=== PATIENT | male | born 1960 | race Caucasian/White ===

== ENCOUNTER 2023-07-01 07:47 | Outpatient (CLI) | payer OTHER | END 2023-07-01 07:48 | disposition home or self-care (01) | LOC: CSHMRI 07:47 | PROVIDERS: ATTEND Neurological Surgery | DX: M47.12 Other spondylosis with myelopathy, cervical region (principal); M48.062 Spinal stenosis, lumbar region with neurogenic claudication; M48.02 Spinal stenosis, cervical region; M47.816 Spondylosis without myelopathy or radiculopathy, lumbar region; Q76.49 Other congenital malformations of spine, not associated with scoliosis | CPT/HCPCS: 72050; 72110; 72141; 72148 ==

== ENCOUNTER 2024-08-15 08:47 | Outpatient (CLI) | payer OTHER | END 2024-08-15 08:48 | disposition home or self-care (01) | LOC: CSHULT 08:47 | PROVIDERS: ATTEND Nurse Practitioner Family | DX: R74.8 Abnormal levels of other serum enzymes (principal); K76.0 Fatty (change of) liver, not elsewhere classified | CPT/HCPCS: 76705 ==

== ENCOUNTER 2024-08-21 08:53 | Outpatient (CLI) | payer OTHER ==
[2024-08-21] MEDS ORDERED: Iopamidol 370 76% 100 ML VIAL ONE (09:24)
== END 2024-08-21 08:54 | disposition home or self-care (01) ==
LOC: CSHCT 08:53
PROVIDERS: ATTEND Nurse Practitioner Family
DX: N28.89 Other specified disorders of kidney and ureter (principal); K74.60 Unspecified cirrhosis of liver; K57.30 Diverticulosis of large intestine without perforation or abscess without bleeding; N32.89 Other specified disorders of bladder
CPT/HCPCS: 74177; 82565

== ENCOUNTER 2025-06-12 12:53 | Outpatient (CLI) | payer MEDICARE | END 2025-06-12 12:54 | disposition home or self-care (01) | LOC: CSHCT 12:53 | PROVIDERS: ATTEND Orthopaedic Surgery | DX: M48.062 Spinal stenosis, lumbar region with neurogenic claudication (principal); M47.26 Other spondylosis with radiculopathy, lumbar region; M43.16 Spondylolisthesis, lumbar region; Z98.890 Other specified postprocedural states; R93.7 Abnormal findings on diagnostic imaging of other parts of musculoskeletal system | CPT/HCPCS: 72131; 72148 ==

== ENCOUNTER 2025-09-18 07:55 | Outpatient (CLI) | payer MEDICARE | END 2025-09-18 07:56 | disposition home or self-care (01) | LOC: CSHULT 07:55 | PROVIDERS: ATTEND Physician Assistant Medical | DX: K76.0 Fatty (change of) liver, not elsewhere classified (principal) | CPT/HCPCS: 76705; 93976 ==